=== PATIENT | male | born 1930 | race Caucasian/White ===

== ENCOUNTER → 2017-01-31 | Outpatient (CLI) | payer MEDICARE, BC ==
[~2017-01-31] MED LIST: ALLEGRA; ALLEGRA PO; ALPRAZOLAM; ALPRAZOLAM PO; ANTIVERT PO; APRISO0.375 GM; APRISO0.375 GM PO; ASACOL400 MG PO; ASPIRIN81 M1 PO; BENICAR PO; CARAFATE1 G; CARAFATE1 G PO; CENTRUM PO; CITALOPRAM HBR10 MG; COREG3.125 MG PO; COREG6.25 MG PO; FERRO-TIME325 MG PO; FISH OIL 1,0001 CAP PO; FISH OIL 1,0001 EAC2; FLOMAX0.4 M1; FLOMAX0.4 M1 DOB; GLUCOSAMINE; GUAIFENESIN-1 CAP.S3 PO; HYDROCODONE-APA1 T43 PO; KCL PO; MULTIVITAMIN1 UDCAP; OMEPRAZOLE40 M1 PO; PAXIL10 MG PO; REMICADE; SINGULAIR PO; VITAMIN D2000 UNIT; ZANTAC300 MG PO; [UNRECOGNIZED DRUG - OTHER] PO
--- NOTE | ~2017-01-31 | US128 ---
[id number] [address] [address] [id number] O MR#: [id number] Acc #: [id number] NAME: FAVIOLA DOSS : 1930 SEX: M STUDY DATE/TIME: 01/31/2017 14:29 UNIT: SG ROOM: STUDY DESCRIPTION: US Thyroid Attending Physician: Israel Cardenas M.D. Referring Physician: Israel Cardenas M.D. Ordering Physician: Israel Cardenas M.D. Primary Care Physician: Israel Cardenas M.D. MEDICAL IMAGING REPORT This report is preliminary unless electronic signature is present. EXAM Thyroid ultrasound DATE OF EXAMINATION 01/31/2017 COMPARISON STUDIES None HISTORY Multiple thyroid nodules. FINDINGS On the right, there are multiple mostly cystic thyroid lesions. The largest is about 1.4 x 1.5 x 1.6 cm in size. On the left, again, multiple cystic lesions are seen. There is a solid appearing lesion, which may measure about 11 x 6 x 14 mm. IMPRESSION Multiple bilateral thyroid lesions, almost all of which appear likely cystic. 1 on the left measuring 11 x 6 x 14 mm may be at least partially solid, though that is not clear. No clear indication for tissue sampling at this time. Recommend surveillance ultrasound. Dictated by... Jad Yung M.D. THIS IS AN ELECTRONICALLY VERIFIED REPORT Jad Yung M.D. at 02/06/2017 9:46 AM Olga Lidia TD: 02/01/2017 15:29 JOB #: [id number] MEDICAL IMAGING REPORT Page 1 of 1
== END | disposition home or self-care (01) ==
LOC: SGUS 14:15
DX: E04.2 Nontoxic multinodular goiter (principal); E07.89 Other specified disorders of thyroid
CPT/HCPCS: 76536